=== PATIENT | female | born 1945 | race Caucasian/White ===

== ENCOUNTER 2016-04-10 10:46 | Outpatient (CLI) | payer MEDICARE ==
[2016-04-10 12:01] LABS: ALT (SGPT) 16 U/L (0-55); AST (SGOT) 14 U/L (5-34); Alkaline Phosphatase 46 U/L (40-150); Anion Gap 12 mmol/L (10-20); BUN (Urea Nitrogen) 15 mg/dL (9.8-20.1); Bilirubin, Total 0.6 mg/dL (0.2-1.2); Calc. Creatinine Clearance 0 mL/min (70-130); Calcium 9.3 mg/dL (7.8-10.44); Carbon Dioxide 28 mmol/L (23-31); Chloride 106 mmol/L (98-107); Estimated GFR-MDRD 64; Globulin 2.6 g/dL (2.4-3.5); LDL Cholesterol, Calculated 123 mg/dL; Protein, Total 6.8 g/dL (5.8-8.1)
[2016-04-10 12:58] LABS: #Eosinphils 0.1 thou/uL (0.0-0.7); #Monocytes 0.5 thou/uL (0.11-0.59); #Neutrophils 2.3 thou/uL (1.40-6.50); %Basophils 1.1 % (0.0-1.0); %Eosinophils 2.9 % (0.0-10.0); %Monocytes 13.2 % (0.0-10.0); Hematocrit 42.4 % (36.0-47.0); Mean Platelet Volume 6.5 fL (7.4-10.4); Red Blood Cell (RBC) Count 4.59 mill/uL (4.20-5.40)
== END 2016-04-10 10:47 | disposition home or self-care (01) ==
LOC: BURLAB 10:46
PROVIDERS: ATTEND Family Medicine
DX: E03.9 Hypothyroidism, unspecified (principal); D64.9 Anemia, unspecified; I10 Essential (primary) hypertension; E78.5 Hyperlipidemia, unspecified; L30.9 Dermatitis, unspecified; R19.7 Diarrhea, unspecified
CPT/HCPCS: 36415; 80053; 80061; 83516; 84443; 85025

== ENCOUNTER 2016-07-06 11:48 | Outpatient (CLI) | payer MEDICARE | END 2016-07-06 11:49 | disposition home or self-care (01) | LOC: BURLAB 11:48 | PROVIDERS: ATTEND Allergy & Immunology | DX: D89.89 Other specified disorders involving the immune mechanism, not elsewhere classified (principal) ==

== ENCOUNTER 2016-08-17 10:54 | Outpatient (CLI) | payer MEDICARE ==
[2016-08-17 12:16] LABS: ALT (SGPT) 32 U/L (8-55); AST (SGOT) 19 U/L (5-34); Albumin 4.1 g/dL (3.4-4.8); Alkaline Phosphatase 45 U/L (40-150); Bilirubin, Direct 0.3 mg/dL (0.1-0.3); Bilirubin, Total 0.6 mg/dL (0.2-1.2); Protein, Total 6.9 g/dL (6.0-8.3)
[2016-08-17 12:25] LABS: #Basophils 0.1 thou/uL (0.0-0.2); #Eosinphils 0.2 thou/uL (0.0-0.7); #Lymphocytes 1.1 thou/uL (1.20-3.40); #Monocytes 0.3 thou/uL (0.11-0.59); #Neutrophils 2.1 thou/uL (1.40-6.50); %Basophils 1.6 % (0.0-1.0); %Eosinophils 5.1 % (0.0-10.0); %Lymphocytes 28.3 % (21.0-51.0); %Monocytes 9.2 % (0.0-10.0); %Neutrophils 55.8 % (42.0-75.0); Hemoglobin 14.9 g/dL (12.0-16.0); Mean Corpuscular Hemoglobin 30.7 pg (27.0-31.0); Mean Corpuscular Volume 90.3 fl (81.0-99.0); Mean Platelet Volume 6.7 fL (7.4-10.4); Platelet Count 291 thou/uL (130-400); RBC Distribution Width 13.5 % (11.5-14.5); Red Blood Cell (RBC) Count 4.85 mill/uL (4.20-5.40); White Blood Cell (WBC) Count 3.7 thou/uL (4.8-10.8)
== END 2016-08-17 10:55 | disposition home or self-care (01) ==
LOC: BURLAB 10:54
PROVIDERS: ATTEND Allergy & Immunology
DX: L50.9 Urticaria, unspecified (principal)
CPT/HCPCS: 36415; 80076; 85025

== ENCOUNTER 2016-10-01 17:14 | Outpatient (CLI) | payer MEDICARE ==
[2016-10-01 18:21] LABS: ALT (SGPT) 29 U/L (8-55); AST (SGOT) 21 U/L (5-34); Albumin 4.1 g/dL (3.4-4.8); Alkaline Phosphatase 45 U/L (40-150); Bilirubin, Direct 0.2 mg/dL (0.1-0.3); Bilirubin, Total 0.4 mg/dL (0.2-1.2); Protein, Total 6.6 g/dL (6.0-8.3)
[2016-10-01 18:22] LABS: Eosinophils 5 % (0-10); Lymphocytes 21 % (21-51); MDiff Complete? YES; Mean Corpuscular HGB CONC 34.1 g/dL (32.0-36.0); Mean Corpuscular Hemoglobin 31.3 pg (27.0-31.0); Mean Corpuscular Volume 91.8 fl (81.0-99.0); Mean Platelet Volume 6.7 fL (7.4-10.4); Monocytes 11 % (0-10); Neutrophil 63 % (42-75); Platelet Count 274 thou/uL (130-400); RBC Distribution Width 13.8 % (11.5-14.5); Red Blood Cell (RBC) Count 4.49 mill/uL (4.20-5.40); White Blood Cell (WBC) Count 5.3 thou/uL (4.8-10.8)
== END 2016-10-01 17:15 | disposition home or self-care (01) ==
LOC: BURLAB 17:14
PROVIDERS: ATTEND Allergy & Immunology
DX: L50.1 Idiopathic urticaria (principal)
CPT/HCPCS: 36415; 80076; 85025

== ENCOUNTER 2018-12-01 00:34 | Emergency (ER) | payer MEDICARE ==
[2018-12-01] MEDS ORDERED: Cyclobenzaprine 10 MG TAB ONE (01:03)
[2018-12-01] MEDS ORDERED: Acetaminophen 500 MG TAB ONE (01:03)
--- NOTE | 2018-12-01 08:33 | RAD ---
LUMBAR SPINE 3 VIEWS: DATE: 12/01/2018. FINDINGS: There is a transitional vertebra at the lumbosacral junction. Some mild disk space narrowing is seen at L5-S1 and may be even fusion of the 2 vertebrae here. There is disk space narrowing at L1-L2. D egenerative changes are present throughout the spine. There is an anterior subluxation of L3 on L4 w hich appears to be due to very severe facet arthritis at this level. There is substantial facet arth ritis at lower levels as well. The SI joints are symmetrical. No fractures were seen. IMPRESSION: Severe degenerative changes of the spine, particularly in the facet joints of the lower lumbar spine. POS: HOME
== END 2018-12-01 01:39 | disposition home or self-care (01) ==
LOC: BURERS 00:34
DX: S16.1XXA Strain of muscle, fascia and tendon at neck level, initial encounter (principal); S30.0XXA Contusion of lower back and pelvis, initial encounter; S40.021A Contusion of right upper arm, initial encounter; S00.03XA Contusion of scalp, initial encounter; J45.909 Unspecified asthma, uncomplicated; I10 Essential (primary) hypertension; Z79.899 Other long term (current) drug therapy; Z79.51 Long term (current) use of inhaled steroids; W11.XXXA Fall on and from ladder, initial encounter
CPT/HCPCS: 72100

== ENCOUNTER 2020-04-09 03:54 | Emergency (ER) | payer MEDICARE ==
[2020-04-09] MEDS ORDERED: Meclizine HCl 25 MG TAB ONE (04:58)
[2020-04-09 05:27] LABS: Bilirubin Negative (Negative); Blood, Urine Small (Negative); Clarity Clear (Clear); Glucose, Urine (Dipstick) Negative (Negative); Ketone, Urine Negative (Negative); Leukocyte Negative (Negative); Nitrite Negative (Negative); Protein, Urine (Dipstick) Negative (Neg-Trace); Urobilinogen 0.2 mg/dL (Less than 2); pH, Urine 6.5 (5.0-9.0)
[2020-04-09 05:36] LABS: Bacteria/HPF Rare-Few HPF (None Seen); RBC/HPF 0-3 HPF (0-3); Squamous Epithelial 0-3 HPF (0-3); WBC/HPF 0-3 HPF (0-3)
== END 2020-04-09 05:55 | disposition home or self-care (01) ==
LOC: BURERS 03:54
DX: R42 Dizziness and giddiness (principal); Z79.899 Other long term (current) drug therapy; J45.909 Unspecified asthma, uncomplicated; I10 Essential (primary) hypertension
CPT/HCPCS: 81003; 81015; 93005

== ENCOUNTER 2020-12-16 09:48 | Outpatient (CLI) | payer MEDICARE | END 2020-12-16 09:49 | disposition home or self-care (01) | LOC: BURRAD 09:48 | PROVIDERS: ATTEND Family Medicine | DX: S69.91XA Unspecified injury of right wrist, hand and finger(s), initial encounter (principal) ==

== ENCOUNTER 2021-01-22 19:50 | Emergency (ER) | payer MEDICARE ==
[2021-01-22] MEDS ORDERED: Ibuprofen 800 MG TAB ONE (20:29)
== END 2021-01-22 20:33 | disposition home or self-care (01) ==
LOC: BURERS 19:50
DX: T63.481A Toxic effect of venom of other arthropod, accidental (unintentional), initial encounter (principal); I10 Essential (primary) hypertension; J45.909 Unspecified asthma, uncomplicated; Z79.899 Other long term (current) drug therapy
CPT/HCPCS: 99283

== ENCOUNTER 2021-09-08 15:30 | Outpatient (CLI) | payer MEDICARE | END 2021-09-08 15:31 | disposition home or self-care (01) | LOC: BURRAD 15:30 | PROVIDERS: ATTEND Family Medicine | DX: S86.912A Strain of unspecified muscle(s) and tendon(s) at lower leg level, left leg, initial encounter (principal) ==

== ENCOUNTER 2022-03-26 14:20 | Emergency (ER) | payer MEDICARE, OTHER ==
[2022-03-26] MEDS ORDERED: Benzonatate 100 MG CAP ONE (15:05)
[2022-03-26] MEDS ORDERED: Ibuprofen 800 MG TAB ONE (15:05)
== END 2022-03-26 15:53 | disposition home or self-care (01) ==
LOC: BURERS 14:20
DX: J10.1 Influenza due to other identified influenza virus with other respiratory manifestations (principal); I10 Essential (primary) hypertension
CPT/HCPCS: 71046; 87081; 87430; 87804; 87807

== ENCOUNTER 2022-08-06 07:47 | Emergency (ER) | payer OTHER ==
[2022-08-06] MEDS ORDERED: Sulfameth/Trimethoprim DS 800-160mg TAB ONE (08:20)
[2022-08-06] MEDS ORDERED: Cephalexin 250 MG CAP ONE (08:20)
== END 2022-08-06 08:33 | disposition home or self-care (01) ==
LOC: BURERS 07:47
DX: L02.11 Cutaneous abscess of neck (principal); I10 Essential (primary) hypertension; Z79.82 Long term (current) use of aspirin
CPT/HCPCS: 99282

== ENCOUNTER 2023-07-09 14:53 | Outpatient (CLI) | payer OTHER | END 2023-07-09 14:54 | disposition home or self-care (01) | LOC: BURRAD 14:53 | PROVIDERS: ATTEND Family Medicine | DX: S29.9XXA Unspecified injury of thorax, initial encounter (principal); W19.XXXA Unspecified fall, initial encounter; Y92.009 Unspecified place in unspecified non-institutional (private) residence as the place of occurrence of the external cause ==